=== PATIENT | male | born 1975 | race Two or more races ===

== ENCOUNTER 2018-02-10 22:32 | Emergency (ER) | payer SELFPAY ==
[~2018-02-10] VITALS: Ht 165.1 cm; Wt 68.0 kg
[2018-02-10 22:32] VITALS: BP 132/85
[2018-02-11] VITALS: BP 122/84
[2018-02-11 01:59] VITALS: BP 123/85
[2018-02-11 03:59] VITALS: BP 124/86
[2018-02-11 04:00] VITALS: BP 124/85
--- NOTE | 2018-02-12 06:57 | Emergency Room Report ---
History of Present Illness General Chief Complaint: Alcohol Intoxication Source: Patient, EMS Present Illness HPI Patient was brought by paramedics for reports of altered status on the street upon arrival the patient verbalizes heavy alcohol intake last night Denies any headache Reports that he just wants to sleep There was no other physical signs of trauma Patient does not consider himself an alcoholic However he does report drinking on a regular basis Denies any suicidal or homicidal thoughts and reports that he essentially drank more than usual Allergies: Coded Allergies: No Known Allergies (Unverified , 02/10/18) Patient History Past Medical History: see triage record Pertinent Family History: none Reviewed Nursing Documentation: PMH: Agreed; PSxH: Agreed Nursing Documentation-PMH Past Medical History: No Stated History Review of Systems All Other Systems: negative except mentioned in HPI Physical Exam Vital Signs Date Time Temp Pulse Resp B/P (MAP) Pulse Ox O2 Delivery O2 Flow Rate FiO2 02/10/18 22:14 98.4 80 16 136/84 98 Room Air Sp02 EP Interpretation: reviewed, normal General Appearance: no apparent distress Head: normocephalic, atraumatic Eyes: bilateral eye PERRL, bilateral eye EOMI ENT: normal pharynx Neck: full range of motion, supple Respiratory: lungs clear, normal breath sounds, no retraction, no accessory muscle use Cardiovascular #1: regular rate, rhythm Gastrointestinal: non tender, soft Musculoskeletal: normal inspection Neurologic: alert, oriented x3 - Initially patient somewhat heavily inebriated , was not able to provide full orientation however throughout his prolonged stay has sobered and is awake and alert, responsive Psychiatric: normal inspection, no suicidal/homicidal ideation Skin: normal color, no rash Lymphatic: no adenopathy Medical Decision Making Diagnostic Impression: Primary Impression: Acute alcoholic intoxication ER Course There were no focal neurological deficits Therefore the patient was allowed to rest without further imaging or blood work After further sobering patient is awake ambulatory and requesting to go home Last Vital Signs Date Time Temp Pulse Resp B/P (MAP) Pulse Ox O2 Delivery O2 Flow Rate FiO2 02/11/18 04:00 98.0 63 18 124/85 Room Air 02/11/18 03:59 99 Status: improved Disposition: HOME, SELF-CARE Condition: Improved Referrals: NOT CHOSEN IPA/MD,REFERRING (PCP) Additional Instructions: Patient is provided with the discharge instructions notified to follow up with primary doctor in the next 2-3 days otherwise return to the er with any worsening symptoms. Please note that this report is being documented using DRAGON technology. This can lead to erroneous entry secondary to incorrect interpretation by the dictating instrument. Rohini Marrero DO Feb 12, 2018 06:57
== END 2018-02-11 04:00 | disposition home or self-care (01) ==
LOC: EDBD 22:32 → EMR 23:34
DX: F10.129 Alcohol abuse with intoxication, unspecified (principal)
CPT/HCPCS: 99283